=== PATIENT | male | born 1985 | race Caucasian/White ===

== ENCOUNTER 2021-03-22 23:29 | Emergency (ER) | payer OTHER ==
[2021-03-23 02:23] LABS: BILIRUBIN - TOTAL 0.2 mg/dL (0.2-1.0); BUN/CREAT RATIO (CALC) 14.7 RATIO; CREATININE 1.16 mg/dL (0.67-1.17); GLOBULIN (CALCULATION) 3.7 g/dL; POTASSIUM 3.6 mmol/L (3.5-5.1); TOTAL PROTEIN 7.7 g/dL (6.4-8.2)
[2021-03-23 02:38] LABS: BASOPHIL 0.3 % (0-2); HCT 44.1 % (42.0-52.0); HGB 14.4 g/dl (13.2-18.0); LYMPHOCYTE 31.5 % (15-48); MCH 29.1 pg (25.0-31.0); MCHC 32.7 g/dL (32.0-36.0); MCV 89.1 fL (78.0-100.0); MONOCYTE 8.9 % (0-12); MPV 9.9 fL (6.0-9.5); NRBC 0; PLT 366 K/uL (150-400); RBC 4.95 M/uL (4.70-6.00); RDW 13.4 % (11.5-14.0); WBC 11.2 K/uL (4.0-10.5)
[2021-03-23] MEDS ORDERED: ZYRTEC10 M3 PO (02:56)
== END 2021-03-23 03:36 | disposition home or self-care (01) ==
LOC: FER 23:29
PROVIDERS: Emergency Medicine
DX: T78.40XA Allergy, unspecified, initial encounter (principal); R07.89 Other chest pain; Z88.3 Allergy status to other anti-infective agents; Z88.2 Allergy status to sulfonamides; Z88.8 Allergy status to other drugs, medicaments and biological substances
CPT/HCPCS: 36415; 80053; 84484; 85025; 93005